=== PATIENT | female | born 1985 | race African-American/Black ===

== ENCOUNTER 2020-06-22 23:45 | Emergency (ER) | payer BC ==
[~2020-06-22] VITALS: Ht 162.6 cm; Wt 65.8 kg
[2020-06-23] MEDS ORDERED: KETO10TA2 PO (01:39)
== END 2020-06-23 01:45 | disposition home or self-care (01) ==
LOC: ER 23:45
DX: S90.31XA Contusion of right foot, initial encounter (principal); S90.32XA Contusion of left foot, initial encounter; W23.0XXA Caught, crushed, jammed, or pinched between moving objects, initial encounter; Y93.89 Activity, other specified; Y92.413 State road as the place of occurrence of the external cause; Y99.8 Other external cause status